=== PATIENT | female | born 1995 | race Caucasian/White ===

== ENCOUNTER 2021-11-27 11:09 | Emergency (ER) | payer MEDICAID ==
[~2021-11-27] VITALS: Ht 162.6 cm; Wt 80.0 kg
[2021-11-27 11:38] VITALS: BP 121/91
== END 2021-11-27 12:53 | disposition home or self-care (01) ==
LOC: EMS 11:09
DX: U07.1 COVID-19 (principal); Z91.040 Latex allergy status; Z88.8 Allergy status to other drugs, medicaments and biological substances
CPT/HCPCS: 99283; U0003